=== PATIENT | male | born 1990 | race Caucasian/White ===

== ENCOUNTER 2017-08-03 12:19 | Emergency (ER) | payer OTHER ==
--- NOTE | 2017-08-03 12:57 | EDPHY ---
H & P Stated Complaint: lac r wrist at work-- concerned for poss tendon involvement Time Seen by Provider: 08/03/17 12:56 HPI/ROS: HPI: This is a 26-year-old male who presents with Chief Complaint: lac r wrist at work-- concerned for poss tendon involvement Location: Right wrist Quality: Laceration Duration: Prior to arrival Signs and Symptoms: No bleeding, no radiation, no numbness, no weakness, no tingling, no incontinence, + decreased range of motion, no swelling, no pain, no fever Timing: Acute Severity: Moderate Context: Patient is right-hand dominant, was at work working with metal 1 accidentally dropped and hit his right wrist causing a laceration. Patient reports constant, moderate, immediate pain that quickly resolved. He went to urgent care upon them cleaning it noticed that there was a tendon injury so they sent to the emergency room for further evaluation. Patient denies any decreased range of motion/paresthesias/weakness. Unsure of tetanus status. Modifying Factors: Direct pressure Comment: ROS: see HPI Constitutional: No fever, no chills, no weight loss Eyes: No blurred vision Respiratory: No shortness of breath, no cough Cardiovascular: No chest pain Gastrointestinal: No nausea, no vomiting no diarrhea Genitourinary: No dysuria Extremities: No myalgias Neurologic: No weakness, no numbness Skin: No rashes Hematologic: No bruising, no bleeding MEDICAL/SURGICAL/SOCIAL HISTORY: Medical history: Generally healthy. Does not take any regular medications. Surgical history: Denies Social history: Tobacco user. Family history noncontributory CONSTITUTIONAL: awake and alert, no obvious distress HEENT: Atraumatic and normocephalic. NECK: supple, no midline tenderness, flexion 45 degrees, extension 45 degrees, right and left lateral flexion 45 degrees. No meningismus. Cardiovascular: Normal S1/S2, regular rate, regular rhythm, without murmur rub or gallop. PULMONARY/CHEST: Symmetrical and nontender. no crepitus. Clear to auscultation bilaterally. Good air movement. No accessory muscle usage. ABDOMEN: Soft, nondistended, nontender, no ecchymosis. PELVIC: no pain with rocking; bilateral hips flexion 125 degrees, extension 30 degrees, with no pain internal rotation and no pain external rotation. BACK: No midline tenderness, no paraspinous spasm, deep tendon reflexes 2/2, no pain with straight leg raise, No foot drop. Achilles reflexes are equal bilaterally. Able to walk on heels and toes without difficulty. EXTREMITIES: 2/2 pulses, strength 5/5, right WRIST: Extension to 70, flexion to 80, radial deviation to 20 degree, ulnar deviation to 30, no scaphoid tenderness, no tenderness over ulnar styloid, no tenderness over radial styloid. Right forearm shows 2 inch, deep, simple, flexor tendon exposure non intact, DIP/PIP/MCP flexion/extension intact with good light touch sensation. no deformities, no clubbing, no cyanosis or edema. NEUROLOGICAL: no focal neuro deficits. GCS 15. Light touch sensation intact. SKIN: Warm and dry, no erythema. no rash. Good capillary refill. Source: Patient Exam Limitations: No limitations - Personal History Current Tetanus/Diphtheria Vaccine: No Current Tetanus Diphtheria and Acellular Pertussis (TDAP): No - Medical/Surgical History Hx Asthma: No Hx Chronic Respiratory Disease: No Hx Diabetes: No Hx Cardiac Disease: No Hx Renal Disease: No Hx Cirrhosis: No Hx Alcoholism: No Hx HIV/AIDS: No Hx Splenectomy or Spleen Trauma: No Other PMH: denies - Social History Smoking Status: Current every day smoker Constitutional: Initial Vital Signs Temperature (C) 36.8 C 08/03/17 12:23 Heart Rate 55 L 08/03/17 12:23 Respiratory Rate 16 08/03/17 12:23 Blood Pressure 125/80 H 08/03/17 12:23 O2 Sat (%) 98 08/03/17 12:23 O2 Delivery Mode Room Air Allergies/Adverse Reactions: No Known Allergies Allergy (Unverified 08/03/17 12:23) Home Medications: Medication Instructions Recorded NK [No Known Home Meds] 08/03/17 Medical Decision Making Procedures: Procedure: Laceration repair. Verbal consent was obtained from the patient. The 2 in, deep, simple laceration on the right forearm was anesthetized in the usual fashion using 5 mL of 0.5% bupivacaine with epinephrine. The wound was irrigated, draped and explored to its base with a gloved finger. There were no deep structures involved. No tendon injury was identified. The wound was repaired with #4, 4 0 Prolene. Clean sterile dressing applied. The procedure was performed by myself. Procedure: Splint placement. A a volar splint was applied by the Emergency Room interactive video technician. After application of the splint I returned and re-examined the patient. The splint was adequately immobilizing the joint and distal to the splint the patient's circulation and sensation was intact. ED Course/Re-evaluation: Concern for partial or complete tendon injury on the volar aspect versus retinaculum injury. Laceration repaired and placed in volar splint. Spoke with Orthopedics- Dr. Hendrickson- who kindly agrees to see patient in office tomorrow. No signs of neurovascular compromise/tenting of skin/compartment syndrome/ extremities and joints examined above and below area of concern and are neurovascularly intact. This patient was seen under the supervision of my secondary supervising physician. I evaluated care for this patient independently. Discussed this patient with Dr. Lincoln who did not see the patient. Differential Diagnosis: Differential diagnosis includes but is not limited to laceration, contusion, nerve injury, tendon injury. Departure - Departure Disposition: Home, Routine, Self-Care Clinical Impression: Laceration of flexor tendon of right forearm Qualifiers: Encounter type: initial encounter Qualified Code(s): S56.221A - Laceration of other flexor muscle, fascia and tendon at forearm level, right arm, initial encounter Laceration of right forearm with tendon involvement Qualifiers: Encounter type: initial encounter Qualified Code(s): S51.811A - Laceration without foreign body of right forearm, initial encounter Condition: Good Instructions: Tendon Rupture (ED), Tendon Repair (DC) Additional Instructions: Keep the splint dry and in place until seen by Orthopedics. Call Orthopedics office this afternoon to have an appointment to be seen tomorrow. Is very likely that you will require surgery to repair your tendon. Sutures will need to be removed in 7 days. Return to the ER immediately if you experience new or worsening pain, discoloration, numbness, tingling, or any other symptoms that concern you. Follow-Up: Please follow-up as noted above. Follow-up sooner if your condition worsens or if you develop any new problems. Call as soon as possible for an appointment. Be clear when you call for an appointment that this is an Emergency Department follow-up. Contact the Emergency Department if you have trouble arranging follow-up care. Our referrals are not based on your insurance network. When time allows, contact your insurance carrier to verify the referral physician is in your plan. If not, get a referral for an in-senior network security engineer. Referrals: Wiley Hendrickson MD [Medical Doctor] - 1 day without fail
[2017-08-03] MEDS ORDERED: TDAP ADULT 0.5 ML INJ (BOOSTRIX) IM ONE (14:00)
[2017-08-03 15:03] VITALS: BP 121/80
== END 2017-08-03 15:03 | disposition home or self-care (01) ==
PROC: 0HQFXZZ Repair Right Hand Skin, External Approach (ICD-10-PCS; principal; 2017-08-03)
DX: S56.221A Laceration of other flexor muscle, fascia and tendon at forearm level, right arm, initial encounter (principal); F17.200 Nicotine dependence, unspecified, uncomplicated; Z23 Encounter for immunization; W20.8XXA Other cause of strike by thrown, projected or falling object, initial encounter; Y99.0 Civilian activity done for income or pay; Y93.89 Activity, other specified